=== PATIENT | male | born 1970 | race Caucasian/White ===

== ENCOUNTER 2018-11-01 09:24 | Day surgery (SDC) | payer OTHER ==
[2018-11-01] MEDS ORDERED: CEFAZOLIN 2 GM/50 ML (PMX) 50 ML IVPB (11:00)
[2018-11-01 12:38] LABS: ADD MAN DIFF? NO
[2018-11-01 12:42] LABS: WHITE BLOOD COUNT 4.5 10^3/ul (4.8-10.8)
[2018-11-01 12:42] LABS: BASOPHILS % 0.9 % (0.0-2.0); EOSINOPHILS # 0.2 10^3/ul (0.0-0.5); EOSINOPHILS % 3.3 % (0.0-7.0); HEMATOCRIT 45.2 % (42.0-52.0); HEMOGLOBIN 15.8 g/dl (14.0-18.0); LYMPHOCYTES # 0.9 10^3/ul (0.8-2.9); LYMPHOCYTES % 20.8 % (15.0-51.0); MEAN CORPUSCULAR HEMOGLOBIN 30.9 pg (29.0-33.0); MEAN CORPUSCULAR VOLUME 88.5 fl (82.0-101.0); MEAN PLATELET VOLUME 9.9 fl (7.4-10.4); MONOCYTE # 0.3 10^3/ul (0.3-0.9); MONOCYTES % 7.5 % (0.0-11.0); NEUTROPHIL # 3.1 10^3/ul (1.6-7.5); NEUTROPHILS % 67.3 % (39.0-77.0); PLATELET COUNT 208 10^3/UL (140-415); RED BLOOD COUNT 5.11 10^6/ul (4.70-6.10); RED CELL DISTRIBUTION WIDTH 11.9 % (11.5-14.5)
[2018-11-01] MEDS: SOD CHLORIDE 0.9% 1,000 ML IV (12:52)
[2018-11-01 12:58] LABS: ALANINE AMINOTRANSFERASE 47 IU/L (13-69); ALBUMIN 4.5 g/dl (3.3-4.9); ALBUMIN/GLOBULIN RATIO 1.45; ALKALINE PHOSPHATASE 80 IU/L (42-121); ANION GAP 10 (5-13); ASPARTATE AMINO TRANSFERASE 34 IU/L (15-46); BILIRUBIN,INDIRECT 0.6 mg/dl (0-1.1); BILIRUBIN,TOTAL 0.6 mg/dl (0.2-1.3); BLOOD UREA NITROGEN 16 mg/dl (7-20); CALCIUM 9.4 mg/dl (8.4-10.2); CARBON DIOXIDE 25 mmol/L (21-31); CHLORIDE 107 mmol/L (97-110); CREATININE 0.87 mg/dl (0.61-1.24); Estimated GFR > 60 mL/min (>60); GLUCOSE 89 mg/dl (70-220); POTASSIUM 4.2 mmol/L (3.5-5.1); SODIUM 142 mmol/L (135-144); TOTAL PROTEIN 7.6 g/dl (6.1-8.1)
[2018-11-01 13:01] LABS: INR 1.06; PARTIAL THROMBOPLASTIN TIME 30.9 Sec (23.0-35.0); PROTIME 13.9 Sec (11.9-14.9); PT RATIO 1.1
[2018-11-01] MEDS ORDERED: CEFAZOLIN 1 GM INJ (13:51)
[2018-11-01] MEDS ORDERED: FENTAnyl 50 MCG/ML VIAL (13:51)
[2018-11-01] MEDS ORDERED: MIDAZOLAM 1 MG/ML 2 ML INJ (13:51)
[2018-11-01] MEDS ORDERED: PROPOFOL 20 ML (13:51)
[2018-11-01] MEDS ORDERED: ROPIVACAINE 0.5 % 30 ML VIAL (13:52)
[2018-11-01] MEDS ORDERED: FENTAnyl 50 MCG/ML VIAL IV ×2 (15:00)
[2018-11-01] MEDS ORDERED: LABETALOL HCL 20MG INJ IV (15:00)
[2018-11-01] MEDS ORDERED: MEPERIDINE 25 MG INJ IV (15:00)
[2018-11-01] MEDS ORDERED: OXYCODONE/ACETAMINOPHEN (5/325) TAB PO (15:00)
[2018-11-01] MEDS ORDERED: EPHEDrine 25 MG/5 ML SYG IV (15:00)
[2018-11-01] MEDS ORDERED: ONDANSETRON 4 MG INJ IV (15:00)
[2018-11-01] MEDS ORDERED: METOCLOPRAMIDE 10 MG INJ IV (15:00)
[2018-11-01] MEDS ORDERED: DIPHENHYDRAMINE 50 MG INJ IV (15:00)
[2018-11-01] MEDS ORDERED: HYDROmorphONE 1 MG/5 ML IV SYRINGE IV ×3 (15:00)
[2018-11-01] MEDS ORDERED: ONDANSETRON 4 MG INJ (15:43)
[2018-11-01] MEDS ORDERED: METOCLOPRAMIDE 10 MG INJ (15:43)
[2018-11-01] MEDS ORDERED: KETOROLAC 30 MG INJ (15:44)
[2018-11-01] MEDS ORDERED: DEXAMETHASONE 4 MG/ML 5 ML INJ (15:44)
[2018-11-01] MEDS ORDERED: HYDROCODONE/APAP (5/325) TAB PO (16:00)
[2018-11-01] MEDS: FENTAnyl 50 MCG/ML VIAL IV (16:08)
== END 2018-11-01 17:47 | disposition home or self-care (01) ==
LOC: SDS 09:24
DX: K40.30 Unilateral inguinal hernia, with obstruction, without gangrene, not specified as recurrent (principal)
CPT/HCPCS: 49507; 71045; 80053; 85025; 85610; 85730